=== PATIENT | male | born 1940 | race Caucasian/White ===

== ENCOUNTER 2021-04-23 13:48 | Inpatient (IN) ==
[2021-04-23] MEDS ORDERED: ACETAMINOPHEN 325 MG TABLET PO PRN (18:18)
[2021-04-23] MEDS ORDERED: DEXTROSE 50% 25 GM/50 ML VIAL IV PRN (18:18)
[2021-04-23] MEDS ORDERED: GLUCAGON 1 MG VIAL IM PRN (18:18)
[2021-04-23] MEDS ORDERED: ALBUTEROL/IPRATROPIUM 3 ML NEB RESP TX PRN (18:18)
[2021-04-23] MEDS ORDERED: hydrALAZINE 20 MG/1 ML VIAL IV PRN (18:24)
[2021-04-23] MEDS ORDERED: LORazepam 2 MG/1 ML VIAL IV PRN (18:25)
[2021-04-23] MEDS ORDERED: THIAMINE INJ 100 MG, FOLIC ACID INJ 1 MG, MULTIVITAMIN INJ 10 ML in DEXTROSE 5% NACL 0.... IV SCH (18:30)
[2021-04-23 19:39] LABS: Basophils % 0.1 % (0.0-0.8); Hematocrit 42.5 VOL% (42.0-52.0); Hemoglobin 14.4 GM/DL (14.0-18.0); Immature Granulocytes % 0.5 %; Immature Granulocytes Absolute 0.06 #; Lymphocytes # 0.3 10*3/uL (1.4-4.0); Lymphocytes % 3.1 % (21.2-54.2); Mean Corpuscular HGB Conc 33.9 GM/DL (32-36); Mean Corpuscular Volume 94.4 FL (87-102); Mean Platelet Volume 10.4 FL (9.6-12.0); Monocytes % 5.1 % (1.7-12.7); Neutrophils % 91.2 % (38.7-73.9); Platelet Count 193 T/CUMM (130-400); Red Cell Distribution Width 13.5 % (9.3-17.3); White Blood Count 11.1 T/CUMM (4-12)
[2021-04-23 20:18] LABS: Albumin 3.3 G/DL (3.4-5.0); Bilirubin,Total 1.5 MG/DL (0.20-1.00); Calcium 8.5 MG/DL (8.5-10.1); Potassium 3.7 MMOL/L (3.5-5.1); Total Protein 6.9 G/DL (6.4-8.2)
[2021-04-23 21:06] LABS: Lymphocytes 3 % (20-55); Platelet Estimate Normal; Segmented Neutrophils 96 % (50-85); Total Cells Counted 100
[2021-04-23] MEDS: MORPHINE 2 MG/1 ML SYRINGE IV PRN (23:41)
[2021-04-24 00:51] LABS: Bilirubin,Urine Negative (Negative); Blood, Urine Moderate mg/dL (Negative); Glucose,Urine (UA) Negative (Negative); Ketones,Urine 20 mg/dL (Negative); Mucus,Urine Many /LPF (Occasional); Nitrite,Urine Negative (Negative); Protein,Urine Negative; RBC,Urine 7 /HPF (0-4); Urine Appearance CLEAR (Clear); Urine Color Yellow (Yellow); Urine Urobilinogen < 2.0 EU/DL (0.2-1.0)
[2021-04-24] MEDS: MORPHINE 2 MG/1 ML SYRINGE IV PRN (05:21)
[2021-04-24 05:58] LABS: Basophils % 0.1 % (0.0-0.8); Eosinophils # 0.1 10*3/uL (0.0-0.87); Eosinophils % 0.9 % (0.00-10.9); Hematocrit 33.8 VOL% (42.0-52.0); Immature Granulocytes % 0.8 %; Immature Granulocytes Absolute 0.06 #; Lymphocytes # 0.4 10*3/uL (1.4-4.0); Lymphocytes % 5.4 % (21.2-54.2); Mean Corpuscular HGB Conc 31.4 GM/DL (32-36); Mean Corpuscular Volume 102.1 FL (87-102); Mean Platelet Volume 10.9 FL (9.6-12.0); Monocytes % 7.3 % (1.7-12.7); Neutrophils % 85.5 % (38.7-73.9); Red Cell Distribution Width 13.9 % (9.3-17.3)
[2021-04-24 06:00] LABS: White Blood Count 7.4 T/CUMM (4-12)
[2021-04-24 06:01] LABS: Hemoglobin 10.6 GM/DL (14.0-18.0); Platelet Count 149 T/CUMM (130-400); Red Blood Count 3.31 MC/CUMM (3.8-5.5)
[2021-04-24 06:22] LABS: Albumin 2.5 G/DL (3.4-5.0); Bilirubin,Total 1.7 MG/DL (0.20-1.00); Osmolality,Calculated 301.7 MOS/KG (273-304); Potassium 3.1 MMOL/L (3.5-5.1); Risk Ratio 2.36; Total Protein 5.4 G/DL (6.4-8.2); VLDL Cholesterol 9.6 MG/DL
[2021-04-24 06:32] LABS: Lymphocytes 2 % (20-55); Platelet Estimate Normal; Segmented Neutrophils 96 % (50-85); Total Cells Counted 100
[2021-04-24 06:33] LABS: Hypochromasia Slight
[2021-04-24] MEDS ORDERED: VANCOMYCIN INJ 1,000 MG in SODIUM CHLORIDE 0.9% 250 ML IV ONE (06:37)
[2021-04-24] MEDS ORDERED: ceFAZolin 2,000 MG/50 ML DUPLEX IV ONE (06:38)
[2021-04-24] MEDS ORDERED: ONDANSETRON 4 MG/2 ML VIAL ONE (08:38)
[2021-04-24] MEDS ORDERED: BUPIVACAINE SPINAL 0.75% 2 ML AMP SPINAL ONE (08:38)
[2021-04-24] MEDS ORDERED: fentaNYL 100 MCG/2 ML VIAL ONE (08:38)
[2021-04-24] MEDS ORDERED: propofoL 200 MG/20 ML VIAL IV ONE (08:38)
[2021-04-24] MEDS ORDERED: KETAMINE 500 MG/10 ML VIAL ONE (08:38)
[2021-04-24] MEDS ORDERED: MIDAZOLAM 2 MG/2 ML VIAL ONE (08:38)
[2021-04-24] MEDS ORDERED: LIDOCAINE 2% 5 ML VIAL ONE (08:38)
[2021-04-24] MEDS ORDERED: BACITRACIN OINT 0.9 GM PACK TOP ONE (08:48)
[2021-04-24] MEDS ORDERED: LIDOCAINE 1% 5 ML VIAL ONE (08:50)
[2021-04-24] MEDS ORDERED: ROPIVACAINE 0.5% 30 ML VIAL ONE (08:50)
[2021-04-24] MEDS ORDERED: DEXAMETHASONE 4 MG/1 ML VIAL ONE (08:50)
[2021-04-24] MEDS ORDERED: POTASSIUM CHLORIDE 20 MEQ TABLET PO PRN (08:58)
[2021-04-24] MEDS ORDERED: LACTATED RINGERS 1,000 ML IV SCH (09:30)
[2021-04-24] MEDS ORDERED: PHENYLEPHRINE 10 MG/1 ML VIAL IV ONE (10:09)
[2021-04-24] MEDS ORDERED: TRANEXAMIC ACID 1,000 MG/10 ML VIAL ONE (10:46)
[2021-04-24] MEDS ORDERED: ePHEDrine 50 MG/ML VIAL ONE (10:46)
[2021-04-24] MEDS ORDERED: MORPHINE 2 MG/1 ML SYRINGE IV PRN (11:25)
[2021-04-24] MEDS ORDERED: ONDANSETRON 4 MG/2 ML VIAL IV PRN (11:25)
[2021-04-24] MEDS ORDERED: TUBERCULIN SKIN TEST 0.1 ML SYRINGE INTRADERM ONE (14:30)
[2021-04-24] MEDS: PANTOPRAZOLE 40 MG TABLET PO SCH (16:04)
[2021-04-24] MEDS: LACTATED RINGERS 1,000 ML IV SCH (16:04)
[2021-04-24] MEDS: ceFAZolin 2,000 MG/50 ML DUPLEX IV SCH ×2 (16:16→23:16)
[2021-04-24] MEDS: DOCUSATE SODIUM 100 MG CAPSULE PO SCH (20:53)
[2021-04-25] MEDS: MORPHINE 2 MG/1 ML SYRINGE IV PRN (03:14)
[2021-04-25] MEDS: LACTATED RINGERS 1,000 ML IV SCH ×2 (03:18→14:11)
[2021-04-25 06:02] LABS: Hematocrit 37.8 VOL% (42.0-52.0); Hemoglobin 12.4 GM/DL (14.0-18.0); Immature Granulocytes % 0.6 %; Immature Granulocytes Absolute 0.06 #; Lymphocytes # 0.5 10*3/uL (1.4-4.0); Lymphocytes % 4.5 % (21.2-54.2); Mean Corpuscular HGB Conc 32.8 GM/DL (32-36); Mean Corpuscular Volume 95.9 FL (87-102); Mean Platelet Volume 10.8 FL (9.6-12.0); Monocytes % 8.5 % (1.7-12.7); Neutrophils % 86.4 % (38.7-73.9); Platelet Count 181 T/CUMM (130-400); Red Blood Count 3.94 MC/CUMM (3.8-5.5); Red Cell Distribution Width 13.5 % (9.3-17.3); White Blood Count 10.2 T/CUMM (4-12)
[2021-04-25] MEDS: FONDAPARINUX 2.5 MG/0.5 ML SYRINGE SUBCUT SCH (06:15)
[2021-04-25 06:19] LABS: Calcium 8.3 MG/DL (8.5-10.1); Osmolality,Calculated 271.1 MOS/KG (273-304); Potassium 3.6 MMOL/L (3.5-5.1)
[2021-04-25] MEDS ORDERED: NICOTINE 14 MG/24 HR PATCH TRANSDERM PRN (08:09)
[2021-04-25] MEDS: FOLIC ACID 1 MG TABLET PO SCH (08:40)
[2021-04-25] MEDS: DOCUSATE SODIUM 100 MG CAPSULE PO SCH ×2 (08:40→19:07)
[2021-04-25] MEDS: MULTIVITAMIN (BEROCCA) TABLET PO SCH (08:40)
[2021-04-25] MEDS: PANTOPRAZOLE 40 MG TABLET PO SCH (08:40)
[2021-04-25] MEDS: THIAMINE 100 MG TABLET PO SCH (08:40)
[2021-04-25] MEDS ORDERED: ALUM/MAG/SIMETH/LIDO VISC 1:1 30 ML BOTTLE PO ONE (11:17)
[2021-04-25] MEDS ORDERED: ALUM/MAG/SIMETH/LIDO VISC 1:1 30 ML BOTTLE PO PRN (11:27)
[2021-04-25] MEDS ORDERED: ALUMINUM/MAGNES/SIMETH MAX STR 30 ML UDCUP PO PRN (20:25)
[2021-04-26] MEDS: FONDAPARINUX 2.5 MG/0.5 ML SYRINGE SUBCUT SCH (05:36)
[2021-04-26 05:39] LABS: Eosinophils # 0.1 10*3/uL (0.0-0.87); Eosinophils % 0.7 % (0.00-10.9); Hematocrit 33.9 VOL% (42.0-52.0); Hemoglobin 11.3 GM/DL (14.0-18.0); Immature Granulocytes % 0.7 %; Immature Granulocytes Absolute 0.05 #; Lymphocytes # 0.7 10*3/uL (1.4-4.0); Lymphocytes % 9.9 % (21.2-54.2); Mean Corpuscular HGB Conc 33.3 GM/DL (32-36); Mean Corpuscular Volume 95.5 FL (87-102); Monocytes % 11.7 % (1.7-12.7); Platelet Count 180 T/CUMM (130-400); Red Blood Count 3.55 MC/CUMM (3.8-5.5); Red Cell Distribution Width 13.3 % (9.3-17.3); White Blood Count 7.5 T/CUMM (4-12)
[2021-04-26 06:06] LABS: Calcium 7.8 MG/DL (8.5-10.1); Osmolality,Calculated 276.5 MOS/KG (273-304); Potassium 3.6 MMOL/L (3.5-5.1)
[2021-04-26] MEDS: MULTIVITAMIN (BEROCCA) TABLET PO SCH (08:40)
[2021-04-26] MEDS: DOCUSATE SODIUM 100 MG CAPSULE PO SCH ×2 (08:40→21:28)
[2021-04-26] MEDS: FOLIC ACID 1 MG TABLET PO SCH (08:40)
[2021-04-26] MEDS: THIAMINE 100 MG TABLET PO SCH (08:40)
[2021-04-26] MEDS: PANTOPRAZOLE 40 MG TABLET PO SCH (08:40)
[2021-04-26] MEDS: MORPHINE 2 MG/1 ML SYRINGE IV PRN (17:09)
[2021-04-27] MEDS: MORPHINE 2 MG/1 ML SYRINGE IV PRN ×2 (01:21→05:01)
[2021-04-27] MEDS: FONDAPARINUX 2.5 MG/0.5 ML SYRINGE SUBCUT SCH (05:46)
[2021-04-27 06:02] LABS: Basophils % 0.3 % (0.0-0.8); Eosinophils # 0.2 10*3/uL (0.0-0.87); Eosinophils % 3.1 % (0.00-10.9); Hematocrit 36.3 VOL% (42.0-52.0); Immature Granulocytes % 0.6 %; Immature Granulocytes Absolute 0.04 #; Lymphocytes # 0.8 10*3/uL (1.4-4.0); Lymphocytes % 13.6 % (21.2-54.2); Mean Corpuscular HGB Conc 33.1 GM/DL (32-36); Mean Corpuscular Volume 96.3 FL (87-102); Mean Platelet Volume 10.8 FL (9.6-12.0); Monocytes % 13.1 % (1.7-12.7); Neutrophils % 69.3 % (38.7-73.9); Platelet Count 208 T/CUMM (130-400); Red Blood Count 3.77 MC/CUMM (3.8-5.5); Red Cell Distribution Width 13.4 % (9.3-17.3); White Blood Count 6.2 T/CUMM (4-12)
[2021-04-27 06:24] LABS: Calcium 8.1 MG/DL (8.5-10.1); Potassium 3.6 MMOL/L (3.5-5.1)
[2021-04-27] MEDS ORDERED: BISACODYL 10 MG SUPP RECTAL PRN (07:19)
[2021-04-27] MEDS: MULTIVITAMIN (BEROCCA) TABLET PO SCH (09:06)
[2021-04-27] MEDS: THIAMINE 100 MG TABLET PO SCH (09:06)
[2021-04-27] MEDS: PANTOPRAZOLE 40 MG TABLET PO SCH (09:06)
[2021-04-27] MEDS: DOCUSATE SODIUM 100 MG CAPSULE PO SCH ×2 (09:06→21:38)
[2021-04-27] MEDS: FOLIC ACID 1 MG TABLET PO SCH (09:06)
[2021-04-28] MEDS: FONDAPARINUX 2.5 MG/0.5 ML SYRINGE SUBCUT SCH (05:24)
[2021-04-28] MEDS: DOCUSATE SODIUM 100 MG CAPSULE PO SCH ×2 (08:21→21:05)
[2021-04-28] MEDS: PANTOPRAZOLE 40 MG TABLET PO SCH (08:21)
[2021-04-28] MEDS: MULTIVITAMIN (BEROCCA) TABLET PO SCH (08:21)
[2021-04-28] MEDS: MAGNESIUM HYDROXIDE SUSP 30 ML UDCUP PO PRN (08:23)
[2021-04-28] MEDS: MORPHINE 2 MG/1 ML SYRINGE IV PRN (13:40)
[2021-04-29] MEDS: FONDAPARINUX 2.5 MG/0.5 ML SYRINGE SUBCUT SCH (05:43)
[2021-04-29 05:54] LABS: Basophils % 0.3 % (0.0-0.8); Eosinophils # 0.2 10*3/uL (0.0-0.87); Eosinophils % 2.3 % (0.00-10.9); Hematocrit 38.9 VOL% (42.0-52.0); Hemoglobin 12.9 GM/DL (14.0-18.0); Immature Granulocytes % 1.2 %; Immature Granulocytes Absolute 0.09 #; Lymphocytes # 0.9 10*3/uL (1.4-4.0); Lymphocytes % 11.6 % (21.2-54.2); Mean Corpuscular HGB Conc 33.2 GM/DL (32-36); Mean Platelet Volume 10.1 FL (9.6-12.0); Monocytes % 10.4 % (1.7-12.7); Neutrophils % 74.2 % (38.7-73.9); Platelet Count 309 T/CUMM (130-400); Red Blood Count 4.05 MC/CUMM (3.8-5.5); Red Cell Distribution Width 13.3 % (9.3-17.3); White Blood Count 7.7 T/CUMM (4-12)
[2021-04-29] MEDS: PANTOPRAZOLE 40 MG TABLET PO SCH (08:28)
[2021-04-29] MEDS: MULTIVITAMIN (BEROCCA) TABLET PO SCH (08:28)
[2021-04-29] MEDS: DOCUSATE SODIUM 100 MG CAPSULE PO SCH (08:28)
[2021-04-29] MEDS: MAGNESIUM HYDROXIDE SUSP 30 ML UDCUP PO PRN (08:31)
[2021-04-29 11:18] VITALS: BP 149/85
== END 2021-04-29 14:18 | DRG 522 ==
LOC: N.3E 17:01 → SUATTDRO 17:01
PROVIDERS: ADMIT Internal Medicine; ATTEND Internal Medicine